=== PATIENT | female | born 1995 | race Caucasian/White ===

== ENCOUNTER 2018-08-23 13:25 | Emergency (ER) | payer OTHER ==
--- NOTE | 2018-08-23 13:29 | EDPHY ---
H & P Time Seen by Provider: 08/23/18 13:27 Constitutional: Initial Vital Signs Temperature (C) 37.2 C 08/23/18 13:31 Heart Rate 62 08/23/18 13:31 Respiratory Rate 16 08/23/18 13:31 Blood Pressure 128/67 H 08/23/18 13:31 O2 Sat (%) 98 08/23/18 13:31 O2 Delivery Mode Room Air Allergies/Adverse Reactions: No Known Allergies Allergy (Unverified 08/23/18 13:30) Home Medications: Medication Instructions Recorded Lamictal 08/23/18 [place] Aspartate 08/23/18 Seroquel 100 mg (*) 08/23/18 Medical Decision Making ED Course/Re-evaluation: CHIEF COMPLAINT: Feeling shaky HISTORY OF PRESENT ILLNESS: The patient is a 22 y/o female with a history of bipolar disorder stating that she "thinks her lithium levels are off". She also recently started Spironolactone (yesterday) for acne, and has since felt shaky and anxious. She took one dose last night and one dose this morning. She states "there is nothing wrong but I can't stop crying". She also feels "achy and out of body". In addition to these symptoms she has urinary frequency. No fever, headache, lightheadedness, chest pain, heart palpitations, shortness of breath, cough, abdominal pain, bowel complaints, numbness, paresthesias. REVIEW OF SYSTEMS: A 10 point review of systems was performed and is negative with the exception of the elements mentioned in the history of present illness. PHYSICAL EXAM: HR, BP, O2 Sat, RR. Temp noted General Appearance: Tearful, anxious, alert, well hydrated, appropriate, and non-toxic appearing. Head: Atraumatic without scalp tenderness or obvious injury Eyes: Pupils equal, round, reactive to light and accommodation, EOMI, no trauma , no injection. Ears: Clear bilaterally, no perforation, normal landmarks Nose: Atraumatic, no rhinorrhea, clear. Throat: There is no erythema or exudates, no lesions, normal tonsils, mucus membranes moist. Neck: Supple, 2+ carotid upstroke, nontender, no lymphadenopathy. Respiratory: No retractions, no distress, no wheezes, and no accessory muscle use. Lungs are clear to auscultation bilaterally. Cardiovascular: Regular rate and rhythm, no murmurs, rubs, or gallops. Bilateral carotid, radial, dorsalis pedis, and posterior tibial pulses intact. Good capillary refill all extremities. Gastrointestinal: Abdomen is soft, nontender, non-distended, no masses, no rebound, no guarding, no peritoneal signs. Musculoskeletal: Normal active ROM of all extremities, atraumatic. Neurological: Alert, appropriate, and interactive. The patient has normal DTRs and non-focal cranial nerves, motor, sensory, and cerebellar exam. Skin: No rashes, good turgor, no nodules on palpation. Past medical history: Bipolar Disorder Past surgical history: Denies Family history: Denies Social history: Lives in [place], single, employed DIAGNOSTICS/PROCEDURES/CRITICAL CARE TIME: Not indicated. DIFFERENTIAL DIAGNOSIS: The differential diagnosis for the patient's symptoms included but was not limited to functional and major depression, situational depression, medication side effect, drugs, and alcohol abuse. MEDICAL DECISION MAKING: The patient is a 22 y/o female with a history of bipolar disorder stating that she "thinks her lithium levels are off". She recently started Spironolactone ( yesterday) for acne, and has since felt shaky and anxious. On exam she is tearful and anxious, but no other significant exam findings besides the subjective findings stated by the patient. Patient's urinary frequency is most likely having urinary frequency due to the Spironolactone. Labs ordered; 1L IV NS administered. 1412: Patient's labs reveal a low lithium level. Her other labs are unremarkable. I will advise her to follow up with the physician who prescribed the lithium. 1413: Reassessed patient and discussed laboratory findings. I have advised her to take an extra dose of [place] and follow up with her physician. I have also discussed the diuretic effects of Spironolactone and needing to drink extra fluids. Return precautions provided; patient is comfortable with this plan. 1424: Patient's UA is normal. Her urinary frequency is due to the spironolactone not a UTI. - Data Points Laboratory Results: 08/23/18 08/23/18 08/23/18 14:15 13:57 13:50 POC Hgb 14.6 gm/dL gm/dL (12.6-16.3) POC Hct 43 % % (38-47) POC Sodium 141 mEq/L mEq/L (135-145) POC Potassium 4.1 mEq/L mEq/L (3.3-5.0) POC Chloride 107 mEq/L mEq/L (97-110) POC Total CO2 23 mEq/L mEq/L (22-31) POC BUN 11 mg/dL mg/dL (7-23) POC Creatinine 0.8 mg/dL mg/dL (0.6-1.0) POC Glucose 100 mg/dL mg/dL (70-100) Urine Color YELLOW Urine Appearance CLEAR Urine pH 7.0 (5.0-7.5) Ur Specific [place] 1.006 (1.002-1.030) Urine Protein NEGATIVE (NEGATIVE) Urine Ketones NEGATIVE (NEGATIVE) Urine Blood NEGATIVE (NEGATIVE) Urine Nitrate NEGATIVE (NEGATIVE) Urine Bilirubin NEGATIVE (NEGATIVE) Urine Urobilinogen NEGATIVE EU EU (0.2-1.0) Ur Leukocyte Esterase NEGATIVE (NEGATIVE) Urine RBC Pending Urine WBC Pending Ur Epithelial Cells Pending Urine Glucose NEGATIVE (NEGATIVE) [place] 0.5 mEq/L L mEq/L (0.6-1.2) Medications Given: Discontinued Medications Sodium Chloride (Ns) 1,000 mls @ 0 mls/hr IV EDNOW ONE; Wide Open PRN Reason: Protocol Stop: 08/23/18 13:47 Last Admin: 08/23/18 13:50 Dose: 1,000 mls Point of Care Test Results: Chemistry 08/23/18 13:57 POC Sodium 141 mEq/L mEq/L (135-145) POC Potassium 4.1 mEq/L mEq/L (3.3-5.0) POC Chloride 107 mEq/L mEq/L (97-110) POC Total CO2 23 mEq/L mEq/L (22-31) POC BUN 11 mg/dL mg/dL (7-23) POC Creatinine 0.8 mg/dL mg/dL (0.6-1.0) POC Glucose 100 mg/dL mg/dL (70-100) ISTAT H&H 08/23/18 13:57 POC Hgb 14.6 gm/dL gm/dL (12.6-16.3) POC Hct 43 % % (38-47) Departure - Departure Disposition: Home, Routine, Self-Care Clinical Impression: low lithium, Anxiousness, Bipolar 1 disorder Condition: Good Instructions: [place] (By mouth), Anxiety (ED) Additional Instructions: 1. Take one extra dose of [place] today. 2. Follow up with the physician who prescribed your [place]. 3. Expect to urinate more while taking Spironolactone as this is a diuretic. 4. Make sure to drink plenty of fluids. 5. Return to the ED for thoughts of self-harm, racing thoughts or other concerns. Referrals: Magnolia Duffy MD [Primary Care Provider] - As per Instructions Report Scribed for: Jim Mixon Report Scribed by: Maria Ines Funez Date of Report: 08/23/18 Time of Report: 13:29
[2018-08-23] MEDS ORDERED: NS 1,000 ML IV ONE (13:46)
[2018-08-23 14:26] VITALS: BP 107/66
== END 2018-08-23 14:31 | disposition home or self-care (01) ==
DX: R79.0 Abnormal level of blood mineral (principal); F41.9 Anxiety disorder, unspecified; F31.9 Bipolar disorder, unspecified; E86.9 Volume depletion, unspecified
CPT/HCPCS: 82435-PO; 82565-PO; 82947-PO; 84132-PO; 84295-PO; 84520-PO; 85014-ER